=== PATIENT | male | born 1955 | race Caucasian/White ===

== ENCOUNTER 2020-12-03 12:59 | Emergency (ER) | payer BC, OTHER ==
[~2020-12-03] VITALS: Ht 165.1 cm; Wt 79.4 kg
[~2020-12-03 12:59] MED LIST: ALBU17AE19 IH; CLON1TAB PO
--- NOTE | 2020-12-03 13:18 | NUR ---
Patient discharged to home in stable condition. Written and verbal after care instructions given. Patient verbalizes understanding of instructions. Stressed follow up or return to ER for worsening s/s.
== END 2020-12-03 13:19 | disposition home or self-care (01) ==
LOC: ER 12:59
DX: R05 Cough (principal); F41.9 Anxiety disorder, unspecified; Z79.899 Other long term (current) drug therapy; J44.9 Chronic obstructive pulmonary disease, unspecified; Z86.14 Personal history of Methicillin resistant Staphylococcus aureus infection
CPT/HCPCS: A4663